=== PATIENT | male | born 1975 | race Caucasian/White ===

== ENCOUNTER 2017-11-04 11:39 | Observation (INO) | payer OTHER ==
[~2017-11-04] VITALS: Ht 185.4 cm; Wt 86.2 kg
--- NOTE | 2017-11-04 11:56 | ED GENERAL ADULT ---
See Addendum History of Present Illness General Chief Complaint: ETOH/Drug Related Complaint Stated Complaint: ETOH DETOX Source: patient Exam Limitations: no limitations Vital Signs & Intake/Output Vital Signs & Intake/Output Vital Signs Date Time Temp Pulse Resp B/P B/P Pulse O2 O2 Flow FiO2 Mean Ox Delivery Rate 11/04 1825 98.7 119 20 161/74 96 Room Air 11/04 1559 97.6 116 20 148/71 11/04 1556 97.6 116 20 148/71 96 Room Air 11/04 1302 99 Room Air 11/04 1300 98.0 106 16 138/74 11/04 1259 98.0 106 16 138/74 99 Room Air 11/04 1152 97.1 118 18 146/74 98 Room Air Allergies Coded Allergies: No Known Allergies (11/04/17) Reconcile Medications No Known Home Medications Triage Nurses Notes Reviewed? yes Onset: Gradual Duration: worse persistent since (several weeks) Timing: recent history Injury Environment: home Severity: severe Severity Numbers: 10 No Modifying Factors: none HPI: Patient is a 42-year-old male presenting to the emergency department with chief complaint of alcohol intoxication. Patient reports that he drinks beer daily. He drank a lot this morning. Denies any other drug use. Denies any suicidal or homicidal ideation at this time. Patient reports that he is here for detox. Unable to write much history secondary to intoxication. He is brought in by his parents for detox. According to his father he was last in detox 4 months ago. Reflexes if they are here for medical clearance prior to going to [facility]. Patient usually drinks beer according to father. He is also prescribed Ativan when necessary for anxiety. (Monica Soni) Past History Travel History Traveled to [place] past 21 day No Medical History Any Pertinent Medical History? see below for history Surgical History Surgical History: non-contributory Family History Hx Contributory? No (Monica Soni) Review of Systems Review of Systems Constitutional: Reports: see HPI. Comments Review of systems: See HPI, All other systems negative. Constitutional, no chills fever or weight loss HEENT: No visual changes no sore throat no congestion Cardiovascular: No chest pain ,palpitation Skin, no jaundice no rashes Respiratory: No dyspnea cough sputum or hemoptysis GI: No nausea no vomiting : No dysuria No hematuria Muscle skeletal: no back pain, no neck pain, Neurologic: No numbness Psych: pos stress and anxiety Heme/endocrine: No bruising no bleeding no polyuria or polydipsia Immunology: No splenectomy or history of AIDS (Monica Soni) Physical Exam Physical Exam General Appearance: well developed/nourished, no apparent distress, alert, awake , comfortable Comments: Well-developed well-nourished person in no acute distress HEENT: Pupils equally round and reactive to light and accommodation. Pupils approximately 4 mm bilaterally. Nose is atraumatic. External auditory canal and Tympanic membranes clear. Pharynx normal. No swelling or edema. Neck: Normal inspection Back: Nontender Cardiovascular: Regular rate and rhythms no murmurs rubs or gallops Abdomen: Soft nontender, positive bowel sounds throughout. Respiratory: Chest nontender. No respiratory distress.breath sounds clear to auscultation bilaterally Extremity: No edema Neuro: Alert oriented to person and place, unable to follow cranial nerve testing. Skin: No appreciable rash on exposed skin, skin is warm and dry. Psych: Patient clearly intoxicated, slurred speech. Core Measures ACS in differential dx? No CVA/TIA Diagnosis: No Sepsis Present: No Sepsis Focused Exam Completed? No (Monica Soni) Progress Differential Diagnoses I considered the following diagnoses in my evaluation of the patient: alcohohol intoxication, alcohol withdrawal and electrolyte abnormality Plan of Care: Orders Procedure Date/time Status Discharge Patient 11/04 1851 Active Intake & Output 11/[address] in observation 11/04 1258 Active Patient Data 11/04 1258 Active Patient Safety Monitor 11/04 1205 Active Add-on Test (ER Only) 11/04 1155 Active CIWA 11/04 1155 Active URINE DRUG SCREEN FOR ER ONLY 11/04 1146 Complete LIPASE 11/04 1146 Complete ETHANOL 11/04 1146 Complete COMPREHENSIVE METABOLIC PANEL 11/04 1146 Complete CBC WITHOUT DIFFERENTIAL 11/04 1146 Complete AMYLASE 11/04 1146 Complete Laboratory Tests 11/04/17 1231: Urine Opiates Screen < 100, Methadone Screen < 40, Barbiturate Screen < 60, Ur Phencyclidine Scrn < 6.00, Amphetamines Screen < 100, U Benzodiazepines Scrn < 85, Urine Cocaine Screen < 50, Urine Cannabis Screen < 5.00 11/04/17 1200: Anion Gap 19 H, Estimated GFR > 60, BUN/Creatinine Ratio 11.7, Glucose 122 H, Calcium 10.0, Total Bilirubin 0.4, AST 59, ALT 85 H, Alkaline Phosphatase 81, Total Protein 8.4 H, Albumin 5.3 H, Globulin 3.1, Albumin/Globulin Ratio 1.7, Amylase 54, Lipase 153, CBC w Diff NO MAN DIFF REQ, RBC 5.18, MCV 92.2, MCH 31.6 H, MCHC 34.3, RDW 13.1, MPV 6.8 L, Gran % 57.2, Lymphocytes % 28.9, Monocytes % 12.9 H, Eosinophils % 0.2, Basophils % 0.8, Absolute Granulocytes 5.6, Absolute Lymphocytes 2.8, Absolute Monocytes 1.3 H, Absolute Eosinophils 0, Absolute Basophils 0.1, Serum Alcohol 399.0 Initial ED EKG: none Hand-Off Endorsed To: Brendan Billy MD (Monica Soni) Departure Departure Time of Disposition: 1304 Disposition: STILL A PATIENT Condition: Stable Clinical Impression Primary Impression: Alcohol dependence Qualifiers: Substance use status: uncomplicated Qualified Code: F10.20 - Alcohol dependence, uncomplicated Secondary Impressions: Alcohol withdrawal Qualifiers: Complication of substance-induced condition: uncomplicated Qualified Code: F10.230 - Alcohol dependence with withdrawal, uncomplicated Departure Forms: Customer Survey General Discharge Information Prescriptions: Current Visit Scripts No Known Home Medications (Monica Soni) PA/DEFENSE ATTORNEY Co-Sign Statement Statement: ED Attending supervision documentation- I saw and evaluated the patient. I have also reviewed all the pertinent lab results and diagnostic results. I agree with the findings and the plan of care as documented in the PA's/DEFENSE ATTORNEY's documentation. x I have reviewed the ED Record and agree with the PA's/DEFENSE ATTORNEY's documentation. [] Additions or exceptions (if any) to the PAs/DEFENSE ATTORNEY's note and plan are summarized below: [] (Brendan Billy MD) Critical Care Note Critical Care Note Critical Care Time: non-applicable (Monica Soni)
[2017-11-04 12:09] LABS: ABSOLUTE BASOPHIL COUNT 0.1 /CUMM (0.0-0.2); ABSOLUTE EOSINOPHIL COUNT 0 /CUMM (0.0-0.7); ABSOLUTE GRANULOCYTE CT 5.6 /CUMM (1.4-6.5); ABSOLUTE LYMPH COUNT 2.8 /CUMM (1.2-3.4); ABSOLUTE MONOCYTE COUNT 1.3 /CUMM (0.10-0.60); BASOPHIL % 0.8 % (0.0-2.0); EOSINOPHIL % 0.2 % (0-5); GRANULOCYTE % 57.2 % (42.2-75.2); HEMATOCRIT 47.8 % (42-52); MEAN CORPUSCULAR HGB 31.6 PG (27.0-31.0); MEAN CORPUSCULAR HGB CONC 34.3 G/DL (33.0-37.0); MEAN CORPUSCULAR VOLUME 92.2 FL (80.0-94.0); MEAN PLATELET VOLUME 6.8 FL (7.4-10.4); PLATELET COUNT 508 /CUMM (130-400); RBC DISTRIBUTION WIDTH 13.1 % (11.5-14.5); RED BLOOD CELL CT 5.18 /CUMM (4.70-6.10); WHITE BLOOD CELL COUNT 9.8 /CUMM (4.8-10.8)
[2017-11-04 13:00] VITALS: BP 138/74
[2017-11-04 15:59] VITALS: BP 148/71
[2017-11-04 18:25] VITALS: BP 161/74
== END 2017-11-05 13:16 ==
LOC: ERH 11:39 → ERHI 12:58
PROVIDERS: Emergency Medicine
DX: F10.230 Alcohol dependence with withdrawal, uncomplicated (principal); F41.9 Anxiety disorder, unspecified
CPT/HCPCS: 80307; G0378; G0480